=== PATIENT | female | born 1950 | race African-American/Black ===

== ENCOUNTER 2022-12-20 07:24 | Outpatient (CLI) | payer OTHER, MEDICARE | END 2022-12-20 07:25 | disposition home or self-care (01) | LOC: ULT 07:24 | PROVIDERS: ATTEND Physician Assistant Medical | DX: K70.30 Alcoholic cirrhosis of liver without ascites (principal); Z86.010 Personal history of colon polyps; I85.00 Esophageal varices without bleeding; K76.9 Liver disease, unspecified | CPT/HCPCS: 76705 ==

== ENCOUNTER 2023-07-29 14:06 | Outpatient (CLI) | payer OTHER, MEDICARE | END 2023-07-29 14:07 | disposition home or self-care (01) | LOC: ULT 14:06 | PROVIDERS: ATTEND Physician Assistant Medical | DX: K70.30 Alcoholic cirrhosis of liver without ascites (principal); I85.00 Esophageal varices without bleeding; R10.9 Unspecified abdominal pain; Z86.010 Personal history of colon polyps; Z90.710 Acquired absence of both cervix and uterus; Z90.722 Acquired absence of ovaries, bilateral | CPT/HCPCS: 76700; 76856 ==